=== PATIENT | female | born 1975 | race Caucasian/White ===

== ENCOUNTER 2019-04-19 12:23 | Observation (INO) ==
[2019-04-19] MEDS ORDERED: SODIUM CHLORIDE 0.9% 1,000 ML IV STA ×2 (12:44→13:48)
[2019-04-19 12:58] LABS: Basophils # 0.1 10*3/uL (0.0-0.2); Basophils % 0.4 % (0.0-0.8); Eosinophils # 0.1 10*3/uL (0.0-0.87); Eosinophils % 0.6 % (0.00-10.9); Hematocrit 42.8 VOL% (35.7-47.0); Hemoglobin 13.1 GM/DL (12.0-16.0); Immature Granulocytes % 0.4 %; Immature Granulocytes Absolute 0.05 #; Lymphocytes # 1.4 10*3/uL (1.4-4.0); Lymphocytes % 10.4 % (21.3-54.2); Mean Corpuscular HGB Conc 30.6 GM/DL (32-36); Mean Corpuscular Volume 96.2 FL (87-102); Mean Platelet Volume 10.3 FL (9.6-12.0); Monocytes % 8.1 % (1.7-12.7); Neutrophils % 80.1 % (38.7-73.9); Platelet Count 248 T/CUMM (130-400); Red Blood Count 4.45 MC/CUMM (3.8-5.5); Red Cell Distribution Width 13.6 % (9.3-17.3); White Blood Count 13.3 T/CUMM (4-12)
[2019-04-19 13:09] LABS: INR 0.9; PT Patient Result 9.9 SECS; Partial Thromboplastin Time 27.3 SECS (0-40)
[2019-04-19 13:30] LABS: Apearance,Urine CLEAR (Clear); Bilirubin,Urine Negative (Negative); Blood, Urine Negative (Negative); Glucose,Urine (UA) Negative (Negative); Hyaline Casts,Urine 28 /LPF (0-3); Ketones,Urine Negative (Negative); Mucus,Urine Occasional /LPF (Occasional); Nitrite,Urine Negative (Negative); Protein,Urine Negative; RBC,Urine <1 /HPF (0-4); Squamous Epithelial Cell,Urine Occasional /HPF (0-10); Urine Color Yellow (Yellow); Urine Urobilinogen < 2.0 EU/DL (0.2-1.0); WBC,Urine 1 /HPF (0-6)
[2019-04-19 13:33] LABS: Alanine Aminotransferase 34 U/L (13-56); Albumin 3.7 G/DL (3.4-5.0); Alkaline Phosphatase 102 U/L (45-117); Aspartate Amino Transferase 72 U/L (0-37); Blood Urea Nitrogen 44 MG/DL (7-18); Calcium 9.3 MG/DL (8.5-10.1); Glucose 113 MG/DL (74-106); Total Protein 7.7 G/DL (6.4-8.3); Troponin I < 0.015 NG/ML (0.00-0.045)
[2019-04-19 13:35] LABS: Barbiturates Screen,Urine Negative (Negative); Benzodiazepines Screen,Urine Negative (Negative); Cannabinoid Screen,Urine Negative (Negative); Opiate Screen,Urine Positive (Negative); Phencyclidine Screen,Urine Negative (Negative)
[2019-04-19] MEDS ORDERED: ACETAMINOPHEN 325 MG TABLET PO PRN (14:34)
[2019-04-19] MEDS ORDERED: ONDANSETRON 4 MG/2 ML VIAL IV PRN (14:34)
[2019-04-19] MEDS: SODIUM CHLORIDE 0.9% 1,000 ML IV SCH ×2 (14:54→22:19)
[2019-04-20 04:29] LABS: Basophils # 0.1 10*3/uL (0.0-0.2); Basophils % 0.4 % (0.0-0.8); Eosinophils % 0.2 % (0.00-10.9); Hematocrit 36.7 VOL% (35.7-47.0); Hemoglobin 11.6 GM/DL (12.0-16.0); Immature Granulocytes % 0.4 %; Immature Granulocytes Absolute 0.06 #; Lymphocytes # 1.1 10*3/uL (1.4-4.0); Lymphocytes % 7.5 % (21.3-54.2); Mean Corpuscular HGB Conc 31.6 GM/DL (32-36); Mean Corpuscular Volume 94.8 FL (87-102); Mean Platelet Volume 11.1 FL (9.6-12.0); Monocytes % 5.2 % (1.7-12.7); Neutrophils % 86.3 % (38.7-73.9); Platelet Count 235 T/CUMM (130-400); Red Blood Count 3.87 MC/CUMM (3.8-5.5); Red Cell Distribution Width 13.4 % (9.3-17.3); White Blood Count 14.2 T/CUMM (4-12)
[2019-04-20] MEDS: SODIUM CHLORIDE 0.9% 1,000 ML IV SCH ×3 (04:32→18:56)
[2019-04-20 04:58] LABS: CKMB % 0.7 %
[2019-04-20 05:05] LABS: Calcium 8.9 MG/DL (8.5-10.1); Osmolality,Calculated 287.1 MOS/KG (273-304); Thyroid Stimulating Hormone 0.111 uIU/ml (0.358-3.74)
[2019-04-20] MEDS: PANTOPRAZOLE 40 MG TABLET PO SCH (09:08)
[2019-04-20] MEDS: ENOXAPARIN 30 MG/0.3 ML SYRINGE SUBCUT SCH (09:08)
[2019-04-20 09:26] LABS: Free T4 (Free Thyroxine) 0.86 NG/DL (0.76-1.46)
[2019-04-20] MEDS ORDERED: Vilazodone [Viibryd] 40 MG PO SCH (09:45)
[2019-04-20] MEDS ORDERED: MORPHINE ER 15 MG TABLET PO ONE (11:36)
[2019-04-20 11:38] LABS: Alanine Aminotransferase 26 U/L (13-56); Albumin 2.9 G/DL (3.4-5.0); Alkaline Phosphatase 83 U/L (45-117); Aspartate Amino Transferase 46 U/L (0-37); Bilirubin,Direct < 0.100 MG/DL (0.0-0.20); Bilirubin,Indirect 0.3 MG/DL (0.0-1.0); Bilirubin,Total < 0.39 MG/DL (0.2-1.0); Total Protein 6.5 G/DL (6.4-8.3)
[2019-04-20 14:28] LABS: Folate 14.8 NG/ML (5.4-24.0)
[2019-04-20] MEDS: GABAPENTIN 300 MG CAPSULE PO SCH ×2 (16:44→20:28)
[2019-04-20] MEDS: MORPHINE ER 30 MG TABLET PO SCH (20:27)
[2019-04-21] MEDS: SODIUM CHLORIDE 0.9% 1,000 ML IV SCH ×3 (01:38→15:58)
[2019-04-21] MEDS: GABAPENTIN 300 MG CAPSULE PO SCH ×4 (08:33→22:05)
[2019-04-21] MEDS: MORPHINE ER 30 MG TABLET PO SCH ×2 (08:33→20:39)
[2019-04-21] MEDS: PANTOPRAZOLE 40 MG TABLET PO SCH (08:33)
[2019-04-21] MEDS: ENOXAPARIN 30 MG/0.3 ML SYRINGE SUBCUT SCH (08:34)
[2019-04-21 08:54] LABS: Basophils # 0.1 10*3/uL (0.0-0.2); Basophils % 0.6 % (0.0-0.8); Eosinophils % 0.5 % (0.00-10.9); Hemoglobin 11.2 GM/DL (12.0-16.0); Immature Granulocytes % 0.3 %; Immature Granulocytes Absolute 0.03 #; Lymphocytes # 1.4 10*3/uL (1.4-4.0); Lymphocytes % 15.5 % (21.3-54.2); Mean Corpuscular HGB Conc 32.9 GM/DL (32-36); Mean Corpuscular Volume 93.2 FL (87-102); Monocytes % 7.1 % (1.7-12.7); Platelet Count 255 T/CUMM (130-400); Red Blood Count 3.65 MC/CUMM (3.8-5.5); Red Cell Distribution Width 13.2 % (9.3-17.3); White Blood Count 8.8 T/CUMM (4-12)
[2019-04-21 09:13] LABS: Calcium 8.4 MG/DL (8.5-10.1); Osmolality,Calculated 287.8 MOS/KG (273-304)
[2019-04-22] MEDS: SODIUM CHLORIDE 0.9% 1,000 ML IV SCH ×2 (01:39→06:04)
[2019-04-22 07:16] VITALS: BP 159/94
[2019-04-22] MEDS: ENOXAPARIN 30 MG/0.3 ML SYRINGE SUBCUT SCH (08:28)
[2019-04-22] MEDS: MORPHINE ER 30 MG TABLET PO SCH (08:29)
[2019-04-22] MEDS: GABAPENTIN 300 MG CAPSULE PO SCH (08:29)
[2019-04-22] MEDS: PANTOPRAZOLE 40 MG TABLET PO SCH (08:29)
== END 2019-04-22 11:10 | disposition home or self-care (01) ==
LOC: N.ED 12:23 → N.EDINP 12:23 → SUATTDRO 14:30 → N.EDINP 16:12 → N.2E 16:20
PROVIDERS: ADMIT Internal Medicine; ATTEND Internal Medicine